=== PATIENT | female | born 1955 | race Caucasian/White ===

== ENCOUNTER 2016-09-10 07:22 | Day surgery (SDC) | payer BC ==
[~2016-09-10 07:22] MED LIST: LIDOCAINE W/ SODIUM BICARB 0.5 ML SYR ONE; Lactated Ringers 1,000 ML PRIMARY IV ONE
[2016-09-10] MEDS ORDERED: Lidocaine Inj 1% 20 ML ONE (07:24)
[2016-09-10] MEDS ORDERED: BUPivacaine Inj 0.5% PF (5mg/ml) 10ml vial ONE ×3 (07:24→09:23)
[2016-09-10] MEDS ORDERED: MIDAZOLAM 5 MG/1 ML ONE (08:37)
[2016-09-10] MEDS ORDERED: fentaNYL Inj 250 MCG/5 ML VIAL ONE (08:38)
[2016-09-10] MEDS ORDERED: ceFAZolin 1 GM VIAL ONE (08:49)
[2016-09-10] MEDS ORDERED: ceFAZolin Inj 2gm (Premix) 0 ML IV ONE (08:50)
[2016-09-10] MEDS: BUPivacaine Liposome/PF (Exparel) Inj 20ml vial INFIL ONE ×2 (09:19→09:35)
[2016-09-10] MEDS ORDERED: Lactated Ringers 1,000 ML PRIMARY IV ONE (09:26)
[2016-09-10] MEDS ORDERED: NORMAL SALINE 10 ML SYRINGE FLUSH IVP PRN (09:57)
[2016-09-10] MEDS ORDERED: HYDROcodone-APAP 7.5 MG-325 MG TABLET PO PRN (09:57)
[2016-09-10] MEDS ORDERED: ONDANSETRON 4 MG/2 ML VIAL IVP PRN (09:57)
[2016-09-10] MEDS ORDERED: MORPHINE SULFATE 2 MG/1 ML IVP PRN (09:57)
--- NOTE | 2016-09-10 09:57 | GEN.OPNOTE ---
Operative Note Surgery Date: 09/10/16 Preoperative Diagnosis: Symptomatic ventral/incisional/umbilical hernia Postoperative Diagnosis: Systematic incisional hernia Procedure: Repair of an. Incisional hernia using Prolene mesh Surgeon: Nirav Martinez MD Anesthesia Provider: Ced Engle CRNA Anesthesia Type: Local, MAC Estimated Blood Loss (mL): 15 Fluids: 2 g of Ancef. Lactated Ringer's cc anesthesia notes in EMR. Exoprel 20 mL Pathology: None sent Indications: Patient has hernia just below her umbilicus. This is uncertain whether this is on umbilical hernia versus incisional hernia. CT scan shows loops of bowel within the hernia sac Findings: Patient is brought in operative room. Placed supine position. Given IV sedation. Prepped draped sterile fashion. Timeout performed per protocols. Infiltrated with 0.5 Marcaine and 2% Xylocaine 50-50 mixture. Local anesthetic was titrated for effect. Skin incision was made through previous scar below umbilicus. Hemostased and left cautery. We dissected [place] tissue the hernia sac. At this point a sizable hernia sac dictated we made the incision bigger. I went further caudad. And since her umbilicus is a 30 stretched out and attached we went through the skin of the umbilicus. After proper exposure we completely dissected the hernia sac out. Contents were reduced. Hernia sac reduced. I then closed the fascial defect using 0 Prolene continues running suture. We then undermined the [place] tissue off the fascia using electrocautery cut a piece of Prolene mesh to appropriate size and shape. Did an onlay patch with the Prolene mesh. Sutured the mesh to the fascia using 0 Prolene continuous running suture. Then placed a few simple interrupteds sutures in the middle portion the mesh take up tension off the suture line. Closed the subcutaneous space using continuous running 2-0 Vicryl sutures. A 2 layer closure was done of the [place] tissue. The skin was reapproximated using 4-0 Monocryl crutches running subcutaneous stitch. Area strips applied sterile dressings applied. Patient transferred recovery room in stable condition.
[2016-09-10] MEDS ORDERED: fentaNYL Inj 100 MCG/2 ML VIAL ONE (09:59)
[2016-09-10] MEDS ORDERED: Lactated Ringers 1,000 ML PRIMARY IV SCH (10:00)
[2016-09-10] MEDS ORDERED: fentaNYL Inj 100 MCG/2 ML VIAL IM PRN (10:10)
--- NOTE | 2016-09-10 10:14 | EKG ---
[address] [address] Measurements Intervals [place] Rate: 48 P: 68 ID: [id number] QRS: 14 QRSD: 77 T: 33 QT: 447 QTc: 412 Interpretive Statements SINUS BRADYCARDIA LOW QRS VOLTAGE IN PRECORDIAL LEADS [QRS DEFLECTION < 1.0 mV IN CHEST LEADS] Compared to ECG 10/03/2013 14:32:38 Low QRS voltage now present Sinus rhythm no longer present Electronically Signed On 09-13-16 10:32:27 MDT by Boyd Colon MD [email or web address]
[2016-09-10 11:13] VITALS: TEMP 97
[2016-09-10 11:25] VITALS: RESP 10
== END 2016-09-10 11:42 | disposition home or self-care (01) ==
LOC: SDSC 07:22
PROVIDERS: ATTEND Surgery
DX: K43.9 Ventral hernia without obstruction or gangrene (principal)
CPT/HCPCS: 49560; 49568; 93005; 93010; C9290; J2704; J3010 ×2; J0690; J2001; J2250; J3490; J7120